=== PATIENT | female | born 1955 | race Caucasian/White ===

== ENCOUNTER → 2021-04-02 | Outpatient (CLI) | payer OTHER ==
[~2021-04-02] MED LIST: CELEXA20 MG PO; COLACE 100MG C100 MG PO; CRESTOR20 MG PO; ELIQUIS 2.5 MG2.5 MG PO; FLEXERIL 10 MG10 MG PO; LOPRESSOR 25 MG25 MG PO; LORTAB 5-325 M1 EACH PO; NEURONTIN 100100 MG PO; OMEPRAZOLE40 MG PO; PRINIVIL5 MG PO; VOLTAREN EC 5050 MG PO; ZYRTEC10 MG PO
== END ==
LOC: RAD 12:56
DX: S20.212A Contusion of left front wall of thorax, initial encounter (principal); R07.81 Pleurodynia; S22.42XA Multiple fractures of ribs, left side, initial encounter for closed fracture; K44.9 Diaphragmatic hernia without obstruction or gangrene; W19.XXXA Unspecified fall, initial encounter
CPT/HCPCS: 71111